=== PATIENT | female | born 1980 | race African-American/Black ===

== ENCOUNTER 2018-12-20 04:04 | Emergency (ER) | payer MEDICAID ==
[~2018-12-20] VITALS: Ht 170.2 cm; Wt 61.0 kg
[2018-12-20 07:05] VITALS: BP 117/75
== END 2018-12-20 07:13 | disposition home or self-care (01) ==
LOC: ER 04:04
DX: L42 Pityriasis rosea (principal); R03.0 Elevated blood-pressure reading, without diagnosis of hypertension; F12.90 Cannabis use, unspecified, uncomplicated; F17.210 Nicotine dependence, cigarettes, uncomplicated
CPT/HCPCS: 81025; 99283

== ENCOUNTER 2022-04-27 02:09 | Emergency (ER) | payer MEDICAID, OTHER ==
[~2022-04-27] VITALS: Ht 170.2 cm; Wt 59.0 kg
[2022-04-27 02:12] VITALS: BP 125/83
[2022-04-27] MEDS ORDERED: ACETAMINOPHEN 325MG TABLET PO ONE (05:30)
[2022-04-27] MEDS: LIDOCAINE 5% PATCH TOP SCH ×2 (05:30→05:31)
[2022-04-27 05:56] LABS: *AMPHETAMINES SCREEN URINE NEGATIVE (NEGATIVE); *BARBITURATES SCREEN URINE NEGATIVE (NEGATIVE); *BENZODIAZEPINES SCREEN URINE NEGATIVE (NEGATIVE); *COCAINE SCREEN URINE NEGATIVE (NEGATIVE); METHADONE URINE SCREEN NEGATIVE (NEGATIVE); OPIATES URINE SCREEN NEGATIVE (NEGATIVE); PHENCYCLIDINE URINE SCREEN NEGATIVE (NEGATIVE)
[2022-04-27 05:58] LABS: CANNABINOID URINE SCREEN PRESUMTIVE POSITIVE (NEGATIVE)
[2022-04-27 06:05] LABS: BASOPHILS % 0.6 % (0.0-2.0); EOSINOPHILS % 0.4 % (0.0-5.0); HEMATOCRIT. 33.3 % (36.0-48.0); HEMOGLOBIN. 11.4 g/dL (12.0-16.0); LYMPHOCYTES % 14.7 % (20.0-50.0); MEAN CORPUSCULAR VOLUME 105.2 fL (81.0-99.0); MEAN PLATELET VOLUME 8.1 fl (7.4-10.4); MONOCYTES % 13.1 % (2.0-8.0); NEUTROPHILS % 71.2 % (40.0-76.0); PLATELET 144 x1000/uL (130-400); RED BLOOD CELL COUNT 3.16 mill/uL (4.2-5.4); RED CELL DISTRIBUTION WIDTH 13.9 % (11.6-14.6)
[2022-04-27 06:14] LABS: CHLORIDE 101 mEq/L (98-107)
[2022-04-27] MEDS ORDERED: ACET-2708 MT (06:41)
[2022-04-27] MEDS ORDERED: LIDO700A15 TP (06:41)
== END 2022-04-27 06:54 | disposition home or self-care (01) ==
LOC: ER 02:09
DX: R07.89 Other chest pain (principal); F17.200 Nicotine dependence, unspecified, uncomplicated; F12.10 Cannabis abuse, uncomplicated; F17.290 Nicotine dependence, other tobacco product, uncomplicated; Z13.9 Encounter for screening, unspecified
CPT/HCPCS: 36415; 71045; 80048; 80305; 84484; 85025; 85379; 93005; 99285; 99406